=== PATIENT | male | born 1945 | race Caucasian/White ===

== ENCOUNTER 2023-04-28 08:57 | Outpatient (REF) | payer MEDICARE, OTHER, SELFPAY ==
--- NOTE | 2023-04-28 09:14 | ECG_ITS ---
Test Reason : bradycardia Blood Pressure : / mmHG Vent. Rate : 045 BPM Atrial Rate : 045 BPM P-R Int : 212 ms QRS Dur : 158 ms QT Int : 484 ms P-R-T Axes : 030 -66 -19 degrees QTc Int : 418 ms Sinus bradycardia with 1st degree A-V block Right bundle branch block Left anterior fascicular block Bifascicular block Abnormal ECG When compared with ECG of 12-SEP-2002 09:31, AR interval has increased Referred By: Miguel Ángel Leblanc Electronically Signed By:Tor Carson
[2023-04-28 09:49] LABS: Basophils Absolute Auto 0.1 X10*3/uL (0.0-0.2); Basophils Percent Auto 0.6 % (0-2); Eosinophils Absolute Auto 0.2 X10*3/uL (0.0-0.4); Eosinophils Percent Auto 1.6 % (0-4); Hematocrit 49.5 % (42.0-52.0); Imm Gran Abs Auto 0.05 X10*3/uL (0.00-0.03); Imm Gran Pct Auto 0.4 % (0.0-0.4); MANUAL DIFF FLAG SCAN; Mean Corpuscular HGB Conc 32.3 g/dl (31.0-36.0); Mean Corpuscular Hemoglobin 28.8 pg (27.0-33.0); Mean Platelet Volume 9.8 fL (9.4-12.4); Monocytes Absolute Auto 0.9 X10*3/uL (0.1-1.2); Monocytes Percent Auto 6.7 % (2-11); Neutrophils Absolute Auto 6.1 x10*3/uL (2.0-8.3); Neutrophils Percent Auto 43.7 % (45-73); Platelet Count 227 X10*3/uL (160-400); Red Blood Count 5.56 X10*6/uL (4.60-5.80); Red Cell Distribution Width 13.1 % (11.0-16.0); SCAN SMEAR FLAG 1; White Blood Count 13.9 X10*3/uL (4.8-10.8)
[2023-04-28 09:54] LABS: Lymphocytes Absolute Auto 6.5 X10*3/uL (1.2-4.9)
[2023-04-28 10:01] LABS: Estimated Average Glucose 131 mg/dL; Hemoglobin A1c % 6.2 %
[2023-04-28 10:16] LABS: Alanine Aminotransferase 16 U/L (0-40); Anion Gap 8 (12-20); Aspartate Amino Transferase 17 U/L (5-37); Carbon Dioxide 28 mmol/L (22-29); Chloride 104 mmol/L (96-108); Estimated Glomerular Filt Rate > 60; Glucose Fasting 127 mg/dL (60-99); Potassium 4.2 mmol/L (3.3-5.1); Sodium 136 mmol/L (135-145)
[2023-04-28 10:17] LABS: SLIDE REVIEW VERIFIED
[2023-04-28 10:30] LABS: Erythrocyte Sedimentation Rate 4 MM/HR (0-15)
== END 2023-04-28 08:58 | disposition home or self-care (01) ==
LOC: HO.LAB 08:57
PROVIDERS: PCP Family Medicine; Visit Provider Family Medicine
DX: E11.9 Type 2 diabetes mellitus without complications (principal); I10 Essential (primary) hypertension; E78.00 Pure hypercholesterolemia, unspecified; R00.1 Bradycardia, unspecified; Z79.899 Other long term (current) drug therapy
CPT/HCPCS: 36415; 80051; 82550; 82565; 82947; 83036; 84450; 84460; 85025; 85652; 93005

== ENCOUNTER → 2023-08-03 12:07 | Outpatient (REF) | payer MEDICARE, OTHER, SELFPAY ==
--- NOTE | 2023-08-03 12:22 | ECG_ITS ---
Test Reason : bradycardia Blood Pressure : / mmHG Vent. Rate : 039 BPM Atrial Rate : 039 BPM P-R Int : 000 ms QRS Dur : 160 ms QT Int : 504 ms P-R-T Axes : 000 -64 -28 degrees QTc Int : 405 ms Suspect A-V conduction defect with A-V dissociation Right bundle branch block Left anterior fascicular block Bifascicular block Abnormal ECG When compared with ECG of 28-APR-2023 09:14, Suspect A-V conduction defect with A-V dissociation Referred By: Miguel Ángel Leblanc Electronically Signed By:TRISTON COTO
== END ==
LOC: HO.CARD 12:07
PROVIDERS: PCP Family Medicine; Visit Provider Family Medicine
DX: R00.1 Bradycardia, unspecified (principal)
CPT/HCPCS: 93005